=== PATIENT | male | born 1940 | race Caucasian/White ===

== ENCOUNTER 2018-07-07 20:09 | Emergency (ER) | payer MEDICARE, OTHER ==
[~2018-07-07 20:09] MED LIST: ACET500T68 PO; AMLO-98 PO; AMLO-99 PO; ASP325 PO; ASPI-1471 PO; ATOR10TA24 PO; BO60S PR; CALC-520 PO; CHLOR25 PO; CIP500 PO; CIPR500S3 PO; CLON0.3T35 PO; CLON1PAT TD; CLON1PAT20 TD; CLON1PAT23 TD; DOC100 PO; DOCU-416 PO; FAM20 PO; FAMO-122 PO; FAMO10TA86 PO; FAMO1TAB79 PO; FAMO20TA28 PO; FES4PT PO; FLU180SY9 IM; GLUC1KIT4 IJ; GLY25 PO; GLYB2.5T67 PO; HYDR-2966 PO; HYDR-385 PO; INSU100I30 SQ; INSU100V24 SQ; INSU200I SC; INSU200I SUBQ; LOR5/325 PO; LOSA-57 PO; LOSA25TA46 PO; LOSA50TA72 PO; LUTE10TA3 PO; LUTE20TA PO; LUTE6CAP11 PO; MET500 PO; METO-253 PO; METO-259 PO; METR1KIT2 TP; METXR500 PO; MULT1CAP41 PO; NEED-653 MC; NOVOLOG SUBQ; PHEN200T32 PO; PHENA200 PO; PSYL660P5 PO; ROS10 PO; SODI454P10 MC; SUL500 PO; TAM4 PO; levoquin PO
--- NOTE | 2018-07-07 20:15 | ER Report ---
History and Physical Time Seen By MD: 20:15 HPI/ROS CHIEF COMPLAINT: hematuria HISTORY OF PRESENT ILLNESS: This is an 78 year old male. He had an episode of gross hematuria tonight. He had been feeling alright in his normal state of health and then went to the bathroom. Noted red blood with urination. Some dysuria as well. Had a blood clot on his urinary pad. Mild lower abdominal discomfort. No other pain. He has a history of left nephrectomy due to renal cancer many years ago and has stage 4 chronic kidney disease and see nephrology, Dr. Guzman. He had a TURP about [address] Contreras. No fevers or chills but did have an elevated temperature this week. No other bleeding such as blood in stool, nose bleeds, or other bleeding or bruising. He does feel very weak and fatigued. No chest pain. No shortness of breath. Allergies: Coded Allergies: DYLAN Inhibitors (Verified Allergy, Unknown, 06/07/17) insulin detemir (Verified Allergy, Unknown, RASH, 07/07/15) potassium (Verified Allergy, Unknown, 06/07/17) Home Meds Active Scripts Amoxicillin/Pot Clav 875-125 Mg Tab (AUGMENTIN 875-125 TABLET) 1 Each Tablet, 1 TAB PO Q12H, #20 TAB 0 Refills Prov:ROHIT TURCISO MD 07/07/18 [place], Insulin Disposable (Bd Ultra-Fine Pen Needle) 1 Each Dis.needle, EA MC Q30D, #100 3 Refills USE TO ADMINISTER INSULIN DIRECTED BY YOUR DOCTOR. Prov:LINDSEY AL MD 05/11/18 Atorvastatin Calcium (LIPITOR) 10 Mg Tablet, 1 TAB PO QDAY, #90 TAB 3 Refills Prov:LINDSEY AL MD 04/20/18 Metoprolol Tartrate (METOPROLOL TARTRATE) 50 Mg Tab, 1 TAB PO BID, #180 TAB 3 Refills Prov:LINDSEY AL MD 04/20/18 Glucagon,Human Recombinant (GLUCAGON EMERGENCY KIT) 1 Mg Kit, 1 MG IJ DIRECTED, #1 KIT Prov:LINDSEY AL MD 04/12/18 Amlodipine Besylate (AMLODIPINE BESYLATE) 10 Mg Tablet, 1 TAB PO QDAY, #90 TAB 4 Refills Prov:LINDSEY AL MD 01/25/18 Insulin Glargine 100 Un/Ml Pen (LANTUS SOLOSTAR PEN) 100 Unit/1 Ml Insuln.pen, 60 UNIT SQ QDAY, #15 SYR 3 Refills Prov:LINDSEY AL MD 12/07/17 Insulin Lispro 200 UN/ML PEN (Humalog Kwikpen) 200 Unit/1 Ml Insuln.pen, 15-20 UNITS SC DIRECTED, #10 SYR 6 Refills 20 units in the morning, 15 units at 9 and 15 units with dinner Maximum dose 60 units in a 24-hour period Prov:LINDSEY AL MD 11/22/17 Reported Medications Clonidine Hcl (CLONIDINE HCL) 0.3 Mg Tablet, 0.3 MG PO BID, TAB 04/12/18 Lutein (LUTEIN) 20 Mg Tablet, 1 TAB PO QDAY 11/20/17 Losartan Potassium (LOSARTAN POTASSIUM) 50 Mg Tablet, 1 TAB PO QDAY 11/20/17 Hydrochlorothiazide (HYDROCHLOROTHIAZIDE) 25 Mg Tablet, 1 TAB PO QDAY, TAB 11/20/17 Acetaminophen (TYLENOL EXTRA STRENGTH) 500 Mg Tablet, 500 MG PO PRN, TAB 06/07/17 Calcium Carbonate (TUMS X-STR) 300 Mg Tab.chew, 300 MG PO DAILY, TAB.CHEW 06/07/17 Famotidine/Ca Carb/Mag Hydrox (PEPCID COMPLETE TABLET CHEW) 1 Each Tab.chew, 1 EACH PO QDAY, TAB.CHEW 06/07/17 Metronidazole/Skin Cleansr #23 (ROSADAN 0.75% GEL KIT) 1 Each Kit.cl.gel, 1 EACH TP 06/07/17 Psyllium Husk (Metamucil) Unknown Strength Powder, 1 TBS PO QHS 06/07/17 Aspirin (ASPIR 81) 81 Mg Tablet.dr, 81 MG PO QDAY, TAB 12/26/14 Reviewed Nurses Notes: Yes Hx Smoking: No Smoking Status: Former Smoker Constitutional Vital Sign - Last 24 Hours 07/07/18 07/07/18 07/07/18 07/07/18 20:09 20:17 20:25 20:39 Temp 98.5 Pulse ??? 72 70 Resp 17 B/P (MAP) 159/83 (108) 159/83 Pulse Ox 93 93 O2 Delivery Room Air 07/07/18 07/07/18 07/07/18 8/25/18 20:51 21:00 21:09 21:30 Pulse 69 B/P (MAP) 150/75 (100) 146/74 (98) 139/72 (94) Pulse Ox 93 07/07/18 07/07/18 07/07/18 07/07/18 22:00 22:00 22:35 23:00 Pulse 59 59 B/P (MAP) 145/82 (103) 145/82 (103) 155/78 (103) 142/75 (97) Pulse Ox 91 95 Physical Exam General Appearance: The patient is alert. No acute distress, but is anxious given his history and symptoms tonight. Eyes: Pupils are equal, round. No pallor, injection or icterus. ENT: Mucous membranes are moist. Respiratory: Breathing easily and unlabored. Lungs are clear to auscultation. Cardiovascular: Regular rate and rhythm. No murmurs, gallops or rubs. Normal capillary refill. Gastrointestinal: Abdomen is soft. No masses. Non-tender with palpation. Nondistended. Normal active bowel sounds. No costovertebral angle tenderness with percussion. Genitourinary: No tenderness with palpation of the groin, scrotum and penis. Normal appearing urethra meatus without current bleeding or discharge. Neurological: Alert and oriented x3. Skin: Warm and dry. No rashes. Musculoskeletal: No tenderness in palpation of the back and spine. DIFFERENTIAL DIAGNOSIS: After history and physical exam, differential diagnosis was considered for gross hematuria in a patient with a history of renal cancer s/p left nephrectomy, h/o TURP, on a daily aspirin. Would consider sources of bleeding to be mainly the bladder with urinary tract infection, but not excluding the right kidney. Will check kidney function, blood count, coagulation studies, and urinalysis with culture. CT scan without contrast to evaluate kidneys and bladder. Less likely to be a stone. Medical Decision Making Data Points Result Diagram: 07/07/18204807/07/182048 Laboratory Hematology Test 07/07/18 20:49 07/07/18 22:37 Red Blood Count 5.86 M/uL (4.00-5.60) Mean Corpuscular Volume 81.4 fL (80.0-96.0) Mean Corpuscular Hemoglobin 28.0 pg (26.0-33.0) Mean Corpuscular Hemoglobin Concent 34.4 g/dL (32.0-36.0) Red Cell Distribution Width 15.1 % (11.5-14.5) Mean Platelet Volume 8.4 fL (7.2-11.1) Neutrophils (%) (Auto) 68.4 % (39.4-72.5) Lymphocytes (%) (Auto) 17.6 % (17.6-49.6) Monocytes (%) (Auto) 11.7 % (4.1-12.4) Eosinophils (%) (Auto) 1.5 % (0.4-6.7) Basophils (%) (Auto) 0.8 % (0.3-1.4) Nucleated RBC Relative Count (auto) 0.1 /100WBC Neutrophils # (Auto) 5.6 K/uL (2.0-7.4) Lymphocytes # (Auto) 1.4 K/uL (1.3-3.6) Monocytes # (Auto) 1.0 K/uL (0.3-1.0) Eosinophils # (Auto) 0.1 K/uL (0.0-0.5) Basophils # (Auto) 0.1 K/uL (0.0-0.1) Nucleated RBC Absolute Count (auto) 0.01 K/uL Prothrombin Time 13.3 seconds (12.0-14.4) Prothromb Time International Ratio 1.01 Activated Partial Thromboplast Time 29 seconds (23-35) Sodium Level 133 mmol/L (137-145) Potassium Level 3.8 mmol/L (3.5-5.0) Chloride Level 91 mmol/L (98-107) Carbon Dioxide Level 31 mmol/L (22-30) Blood Urea Nitrogen 43 mg/dl (9-21) Creatinine 1.90 mg/dl (0.66-1.25) Glomerular Filtration Rate Calc 34.3 Random Glucose 232 mg/dl (75-110) Calcium Level 9.2 mg/dl (8.4-10.2) Total Bilirubin 0.3 mg/dl (0.2-1.3) Aspartate Amino Transf (AST/SGOT) 27 U/L (0-35) Alanine Aminotransferase (ALT/SGPT) 41 U/L (0-56) Alkaline Phosphatase 88 U/L (0-126) Total Protein 7.1 g/dl (6.3-8.2) Albumin 4.0 g/dl (3.5-5.0) Urine Color Yellow Urine Clarity Slightly-cloudy Urine pH 5.0 pH (4.8-9.5) Urine Specific [place] 1.009 Urine Protein 30 mg/dL (NEGATIVE) Urine Glucose (UA) Negative mg/dL (NEGATIVE) Urine Ketones Negative mg/dL (NEGATIVE) Urine Blood Large (NEGATIVE) Urine Nitrite Negative (NEGATIVE) Urine Bilirubin Negative (NEGATIVE) Urine Urobilinogen Negative mg/dL (0.2-1.9) Urine Leukocyte Esterase Moderate (NEGATIVE) Urine RBC 32 /HPF (0-2/HPF) Urine WBC 77 /HPF (0-5/HPF) Urine Squamous Epithelial Cells None /LPF (</=FEW) Urine Bacteria Many /HPF (NONE-FEW) Urine Mucus None /HPF (NONE-FEW) Chemistry Test 07/07/18 20:49 07/07/18 22:37 White Blood Count 8.2 k/uL (4.5-11.0) Red Blood Count 5.86 M/uL (4.00-5.60) Hemoglobin 16.4 g/dL (14.0-18.0) Hematocrit 47.7 % (42.0-52.0) Mean Corpuscular Volume 81.4 fL (80.0-96.0) Mean Corpuscular Hemoglobin 28.0 pg (26.0-33.0) Mean Corpuscular Hemoglobin Concent 34.4 g/dL (32.0-36.0) Red Cell Distribution Width 15.1 % (11.5-14.5) Platelet Count 279 K/uL (150-450) Mean Platelet Volume 8.4 fL (7.2-11.1) Neutrophils (%) (Auto) 68.4 % (39.4-72.5) Lymphocytes (%) (Auto) 17.6 % (17.6-49.6) Monocytes (%) (Auto) 11.7 % (4.1-12.4) Eosinophils (%) (Auto) 1.5 % (0.4-6.7) Basophils (%) (Auto) 0.8 % (0.3-1.4) Nucleated RBC Relative Count (auto) 0.1 /100WBC Neutrophils # (Auto) 5.6 K/uL (2.0-7.4) Lymphocytes # (Auto) 1.4 K/uL (1.3-3.6) Monocytes # (Auto) 1.0 K/uL (0.3-1.0) Eosinophils # (Auto) 0.1 K/uL (0.0-0.5) Basophils # (Auto) 0.1 K/uL (0.0-0.1) Nucleated RBC Absolute Count (auto) 0.01 K/uL Prothrombin Time 13.3 seconds (12.0-14.4) Prothromb Time International Ratio 1.01 Activated Partial Thromboplast Time 29 seconds (23-35) Glomerular Filtration Rate Calc 34.3 Calcium Level 9.2 mg/dl (8.4-10.2) Total Bilirubin 0.3 mg/dl (0.2-1.3) Aspartate Amino Transf (AST/SGOT) 27 U/L (0-35) Alanine Aminotransferase (ALT/SGPT) 41 U/L (0-56) Alkaline Phosphatase 88 U/L (0-126) Total Protein 7.1 g/dl (6.3-8.2) Albumin 4.0 g/dl (3.5-5.0) Urine Color Yellow Urine Clarity Slightly-cloudy Urine pH 5.0 pH (4.8-9.5) Urine Specific [place] 1.009 Urine Protein 30 mg/dL (NEGATIVE) Urine Glucose (UA) Negative mg/dL (NEGATIVE) Urine Ketones Negative mg/dL (NEGATIVE) Urine Blood Large (NEGATIVE) Urine Nitrite Negative (NEGATIVE) Urine Bilirubin Negative (NEGATIVE) Urine Urobilinogen Negative mg/dL (0.2-1.9) Urine Leukocyte Esterase Moderate (NEGATIVE) Urine RBC 32 /HPF (0-2/HPF) Urine WBC 77 /HPF (0-5/HPF) Urine Squamous Epithelial Cells None /LPF (</=FEW) Urine Bacteria Many /HPF (NONE-FEW) Urine Mucus None /HPF (NONE-FEW) Coagulation Test 07/07/18 20:49 Prothrombin Time 13.3 seconds Prothromb Time International Ratio 1.01 Activated Partial Thromboplast Time 29 seconds Urinalysis Test 07/07/18 22:37 Urine Color Yellow Urine Clarity Slightly-cloudy Urine pH 5.0 pH (4.8-9.5) Urine Specific [place] 1.009 Urine Protein 30 mg/dL (NEGATIVE) Urine Glucose (UA) Negative mg/dL (NEGATIVE) Urine Ketones Negative mg/dL (NEGATIVE) Urine Blood Large (NEGATIVE) Urine Nitrite Negative (NEGATIVE) Urine Bilirubin Negative (NEGATIVE) Urine Urobilinogen Negative mg/dL (0.2-1.9) Urine Leukocyte Esterase Moderate (NEGATIVE) Urine RBC 32 /HPF (0-2/HPF) Urine WBC 77 /HPF (0-5/HPF) Urine Squamous Epithelial Cells None /LPF (</=FEW) Urine Bacteria Many /HPF (NONE-FEW) Urine Mucus None /HPF (NONE-FEW) EKG/Imaging Imaging ABDOMEN/PELVIS W/O CONTRAST HISTORY: Gross hematuria. COMPARISON: 05/30/2014. and studies dating to 11/01/2006. TECHNIQUE: Axial images were obtained from the lung bases through the symphysis pubis without intravenous contrast. Sagittal and coronal reformats were performed. One of the following dose optimization techniques was utilized in the performance of this exam: Automated exposure control; adjustment of the mA and/or kV according to the patient's size; or use of an iterative reconstruction technique. Specific details can be referenced in the facility's radiology CT exam operational policy. CONTRAST: None. FINDINGS: Lower chest: There is minimal atelectasis. Liver: Normal. Gallbladder/biliary: Normal. Pancreas: Normal. Spleen: Normal. Adrenals: Normal. Kidneys/ureters/bladder: Left kidney is surgically absent. The right kidney is rotated on its axis. There is a 1.8 cm exophytic lesion arising from the anterior right kidney. It has increased in size, previously measuring 1.1 cm in 2014. It was indeterminate on previous noncontrast MR. There is a similar 1.4 cm exophytic lesion arising from the anterior right kidney on image 57, previously 1.1 cm. However, it was of high T2 signal on previous MR, suggesting it is a proteinaceous or complex cyst. There is a 2.4 cm lesion arising from the superior anterior right kidney on image 51 that has increased in size, previously 1.5 cm. It was of high T2 signal on the previous MR, suggesting it is a proteinaceous or complex cyst. There is an 8 mm hyperdense cyst arising from the posterior right renal cortex (coronal image 81). There are other exophytic cysts of the right kidney. No hydronephrosis and no obstructing or nonobstructing calculus. The right ureter and the bladder are normal. Residual left ureter is normal. GI/mesentery/peritoneal cavity: There is no bowel obstruction. There is no wall thickening or pericolonic stranding. The appendix is normal. There is sigmoid and descending colon diverticulosis without diverticulitis. Vessels: There is moderate atherosclerotic disease without aneurysm. Nodes: Normal. Pelvis: There are coarse prostate calcifications. Prostate is prominent, measuring 5 cm. There is a large fat-containing left inguinal hernia. There is a small fat-containing right inguinal hernia. There are pelvic phleboliths. Bones/vertebra/soft tissues: There are bridging anterior osteophytes from T9 through L1. There is mild multilevel degenerative change of the spine. There are vacuum clefts at L5-S1 and at L1-2. There is moderate to severe degenerative facet disease of the lumbar spine. There is 1 mm retrolisthesis of L3 compared to L4. There is a moderate to large fat-containing ventral hernia at the level of umbilicus (image 104 series 3). IMPRESSION: 1. Left kidney is surgically absent. Right kidney contains several cysts as well as some lesions that are not definitely cysts, but may be proteinaceous or complex cysts. Patient had an MR in May 2014 without contrast. Most of the lesions were of high T2 signal, compatible with cysts. However, there is one lesion arising from the anterolateral renal cortex on axial image 64 series 3 of today's examination that is not clearly a simple cyst. It has increased in size and now measures 1.8 cm. Nonemergent follow-up ultrasound is suggested to ensure that it is not a solid lesion. 2. Bladder and right ureter are normal. No hydronephrosis and no obstructing or nonobstructing calculus. 3. Prostate is prominent. 4. Diverticulosis without diverticulitis. 5. Bilateral, left larger than right, fat-containing inguinal hernias, and moderate to large fat-containing umbilical hernia. Report Dictate By: Emilee Douglas at 07/07/2018 10:14 PM ED Course/Re-evaluation Clinical Indication for ER IV: IV Access ED Course The patient had a urinalysis that showed hematuria, but also signs of urinary tract infection. Labs showed his chronic kidney disease and mild changes of electrolytes. Urine culture obtained. CT scan of the abdomen and pelvis without contrast was obtained with results as noted above. Follow-up with Dr. Contreras on Monday and discuss further ultrasound. Starting on Augmentin. Decision to Disposition Date: Jul 07, 2018 Decision to Disposition Time: 23:28 Depart Departure Latest Vital Signs Vital Signs Date Time Temp Pulse Resp B/P (MAP) Pulse Ox O2 Delivery O2 Flow Rate FiO2 07/07/18 23:00 59 142/75 (97) 95 07/07/18 20:25 98.5 17 Room Air Impression: Primary Impression: Urinary tract infection Additional Impression: Gross hematuria Condition: Improved Disposition: HOME OR SELF-CARE Referrals: JAMAAL OWUSU MD (PCP) New Scripts Amoxicillin/Pot Clav 875-125 Mg Tab (AUGMENTIN 875-125 TABLET) 1 Each Tablet 1 TAB PO Q12H, #20 TAB 0 Refills Prov: ROHIT TURCIOS MD 07/07/18 Patient Instructions: Hematuria (ED), Urinary Tract Infection in Men (ED) Additional Instructions: Follow-up with Dr. Contreras as planned. Discuss getting an ultrasound of the kidney for follow-up on the CT scan done tonight. Take the antibiotic Augmentin 875/125 twice a day for 10 days. Return for urine retention or for severe fevers/chills. Problem Qualifiers Primary Impression: Urinary tract infection Urinary tract infection type: acute cystitis Hematuria presence: with hematuria Qualified Codes: N30.01 - Acute cystitis with hematuria ROHIT TURCIOS MD Jul 07, 2018 20:15
[2018-07-07 21:08] LABS: PLATELET COUNT, AUTOMATED 279 K/uL (150-450)
[2018-07-07 21:13] LABS: INR 1.01
--- NOTE | 2018-07-07 22:46 | RADIOLOGY IMAGING REPORT ---
FACILITY: [facility] PATIENT NAME: Dejon Ibarra : 1940 MR: [id number] V: [id number] EXAM DATE: ORDERING PHYSICIAN: ROHIT TURCIOS TECHNOLOGIST: Location: [facility] - [place] Patient: Dejon Ibarra : 1940 Visit/Account:[id number] Date of Sevice: 07/07/2018 ABDOMEN/PELVIS W/O CONTRAST HISTORY: Gross hematuria. COMPARISON: 05/30/2014. and studies dating to 11/01/2006. TECHNIQUE: Axial images were obtained from the lung bases through the symphysis pubis without intrave nous contrast. Sagittal and coronal reformats were performed. One of the following dose optimization techniques was utilized in the performance of this exam: Autom ated exposure control; adjustment of the mA and/or kV according to the patient's size; or use of an i terative reconstruction technique. Specific details can be referenced in the facility's radiology CT exam operational policy. CONTRAST: None. FINDINGS: Lower chest: There is minimal atelectasis. Liver: Normal. Gallbladder/biliary: Normal. Pancreas: Normal. Spleen: Normal. Adrenals: Normal. Kidneys/ureters/bladder: Left kidney is surgically absent. The right kidney is rotated on its axis. T here is a 1.8 cm exophytic lesion arising from the anterior right kidney. It has increased in size, p reviously measuring 1.1 cm in 2013. It was indeterminate on previous noncontrast MR. There is a simil ar 1.4 cm exophytic lesion arising from the anterior right kidney on image 57, previously 1.1 cm. How ever, it was of high T2 signal on previous MR, suggesting it is a proteinaceous or complex cyst. Ther e is a 2.4 cm lesion arising from the superior anterior right kidney on image 51 that has increased i n size, previously 1.5 cm. It was of high T2 signal on the previous MR, suggesting it is a proteinace ous or complex cyst. There is an 8 mm hyperdense cyst arising from the posterior right renal cortex ( coronal image 81). There are other exophytic cysts of the right kidney. No hydronephrosis and no obst ructing or nonobstructing calculus. The right ureter and the bladder are normal. Residual left ureter is normal. GI/mesentery/peritoneal cavity: There is no bowel obstruction. There is no wall thickening or pericol onic stranding. The appendix is normal. There is sigmoid and descending colon diverticulosis without diverticulitis. Vessels: There is moderate atherosclerotic disease without aneurysm. Nodes: Normal. Pelvis: There are coarse prostate calcifications. Prostate is prominent, measuring 5 cm. There is a l arge fat-containing left inguinal hernia. There is a small fat-containing right inguinal hernia. Ther e are pelvic phleboliths. Bones/vertebra/soft tissues: There are bridging anterior osteophytes from T9 through L1. There is mil d multilevel degenerative change of the spine. There are vacuum clefts at L5-S1 and at L1-2. There is moderate to severe degenerative facet disease of the lumbar spine. There is 1 mm retrolisthesis of L 3 compared to L4. There is a moderate to large fat-containing ventral hernia at the level of umbilicu s (image 104 series 3). IMPRESSION: 1. Left kidney is surgically absent. Right kidney contains several cysts as well as some lesions that are not definitely cysts, but may be proteinaceous or complex cysts. Patient had an MR in May 2014 without contrast. Most of the lesions were of high T2 signal, compatible with cysts. However, there i s one lesion arising from the anterolateral renal cortex on axial image 64 series 3 of today's examin ation that is not clearly a simple cyst. It has increased in size and now measures 1.8 cm. Nonemergen t follow-up ultrasound is suggested to ensure that it is not a solid lesion. 2. Bladder and right ureter are normal. No hydronephrosis and no obstructing or nonobstructing calcul us. 3. Prostate is prominent. 4. Diverticulosis without diverticulitis. 5. Bilateral, left larger than right, fat-containing inguinal hernias, and moderate to large fat-cont aining umbilical hernia. Report Dictate By: Emilee Douglas at 07/07/2018 10:14 PM Report E-Signed By: Emilee Douglas at 07/07/2018 10:42 PM WSN:[id number]
[2018-07-07 23:00] VITALS: BP 142/75
[2018-07-07] MEDS ORDERED: AMOX/CLAV 875 MG TAB PO ONE (23:30)
[2018-07-07] MEDS ORDERED: AMOX-559 PO (23:30)
== END 2018-07-07 23:39 | disposition home or self-care (01) ==
LOC: ER 20:20
DX: N30.01 Acute cystitis with hematuria (principal); R31.0 Gross hematuria; N28.1 Cyst of kidney, acquired; K57.30 Diverticulosis of large intestine without perforation or abscess without bleeding
CPT/HCPCS: 74176; 81001; 85025; 85610; 85730; 87077; 87088; 87186; 99284; A9270; 82040; 82247; 82310; 82374; 82435; 82565; 82947; 84075; 84132; 84155; 84295; 84450; 84460; 84520

== ENCOUNTER 2018-09-20 02:00 | Outpatient (RCR) | payer MEDICARE, OTHER ==
[~2018-09-20 02:00] MED LIST changes: +AMLO-113 PO; -AMLO-99 PO; +AMOX-559 PO; -LOSA50TA72 PO; +LOSA50TA74 PO
[2018-09-20] MEDS ORDERED: NIFE60TA95 PO (13:20)
[2018-09-20] MEDS ORDERED: FLAS1EAC2 TD (13:39)
[2018-09-20] MEDS ORDERED: FLAS1KIT2 (13:39)
--- NOTE | 2018-09-25 16:54 | RADIOLOGY IMAGING REPORT ---
FACILITY: [facility] - [place] PATIENT NAME: Dejon Ibarra : 1940 MR: [id number] V: [id number] EXAM DATE: ORDERING PHYSICIAN: LINDSEY AL TECHNOLOGIST: Location: [facility] - [place] Patient: Dejon Ibarra : 1940 Visit/Account:[id number] Date of Sevice: 09/25/2018 KIDNEYS HISTORY: renal cyst right kidney and nephrectomy left side COMPARISON: CT 05/13/2014 FINDINGS: Kidneys: Right kidney- 12.4 x 7.0 x 6.2 cm with normal parenchymal thickness and echogenicity. There are mult iple small simple cysts present. The largest measures 2.2 cm and arises from the superior pole. Left kidney is surgically absent. No mass is identified within the renal fossa. Uniform blood flow in the right kidney by Doppler ultrasound. Hydronephrosis: None. Bladder: Morphologically unremarkable. Right ureteral jet is visualized. There is no significant po st void residual. Abdominal aorta and IVC: Patent by Doppler ultrasound. IMPRESSION: Multiple simple right renal cysts are present. No acute abnormalities noted. Stable left nephrectomy changes Report Dictated By: Armando Graf at 09/25/2018 4:43 PM Report E-Signed By: Armando Graf at 09/25/2018 4:51 PM WSN:[id number]
== END 2018-09-25 18:00 | disposition home or self-care (01) ==
LOC: US 02:00 → EDSTATUS 09-21 13:34 → US 09-25 18:00
PROVIDERS: ATTEND Internal Medicine
DX: N39.0 Urinary tract infection, site not specified (principal); N28.1 Cyst of kidney, acquired; N18.9 Chronic kidney disease, unspecified
CPT/HCPCS: 76705; 81001; 87077; 87088; 87186

== ENCOUNTER 2018-10-16 13:41 | Emergency (ER) | payer MEDICARE, OTHER ==
[~2018-10-16 13:41] MED LIST changes: +FLAS1EAC2 TD; +FLAS1KIT2; +NIFE60TA95 PO
--- NOTE | 2018-10-16 13:58 | ER Report ---
History and Physical Time Seen By MD: 13:59 Hx. of Stated Complaint: left ankle pain HPI/ROS CHIEF COMPLAINT: Left ankle pain HISTORY OF PRESENT ILLNESS: 78-year-old male patient presents to emergency room with complaint of left ankle pain. Patient states this started hurting on of last week. Patient states that pain is worse with any activity. Patient states that it's better if he is not doing anything. He states that it's much worse at nighttime. Patient denies any trauma to the ankle. Patient states that he is able to walk, just has pain with no reason. Patient denies having a history of gout, however he does have a history of pseudogout which was diagnosed by Dr. Valentino. Patient denies any fevers, chills, nausea, vomiting or diarrhea. REVIEW OF SYSTEMS: Respiratory: No cough, no dyspnea. Cardiovascular: No chest pain, no palpitations. Gastrointestinal: No vomiting, no abdominal pain. Musculoskeletal: As noted above Allergies: Coded Allergies: DYLAN Inhibitors (Verified Allergy, Unknown, 10/16/18) insulin detemir (Verified Allergy, Unknown, RASH, 10/16/18) potassium (Verified Allergy, Unknown, 10/16/18) Home Meds Active Scripts Prednisone (PREDNISONE) 20 Mg Tablet, 40 MG PO DAILY, #10 TAB Prov:ARACELIS VINCENT 10/16/18 Flash Glucose Sensor (Freestyle Alexander 14 Day Sensor) 1 Each Kit, UNIT Q2WK, #2 11 Refills Prov:LINDSEY AL MD 09/20/18 Flash Glucose Scanning Castell (Freestyle Alexander 14 Day Castell) 1 Each Each, UNIT TD DIRECTED, #1 Prov:LINDSEY AL MD 09/20/18 [place], Insulin Disposable (Bd Ultra-Fine Pen Needle) 1 Each Dis.needle, EA MC Q30D, #100 3 Refills USE TO ADMINISTER INSULIN DIRECTED BY YOUR DOCTOR. Prov:LINDSEY AL MD 05/11/18 Atorvastatin Calcium (LIPITOR) 10 Mg Tablet, 1 TAB PO QDAY, #90 TAB 3 Refills Prov:LINDSEY AL MD 04/20/18 Metoprolol Tartrate (METOPROLOL TARTRATE) 50 Mg Tab, 1 TAB PO BID, #180 TAB 3 Refills Prov:LINDSEY AL MD 04/20/18 Glucagon,Human Recombinant (GLUCAGON EMERGENCY KIT) 1 Mg Kit, 1 MG IJ DIRECTED, #1 KIT Prov:LINDSEY AL MD 04/12/18 Insulin Glargine 100 Un/Ml Pen (LANTUS SOLOSTAR PEN) 100 Unit/1 Ml Insuln.pen, 60 UNIT SQ QDAY, #15 SYR 3 Refills Prov:LINDSEY AL MD 12/07/17 Insulin Lispro 200 UN/ML PEN (Humalog Kwikpen) 200 Unit/1 Ml Insuln.pen, 15-20 UNITS SC DIRECTED, #10 SYR 6 Refills 20 units in the morning, 15 units at 9 and 15 units with dinner Maximum dose 60 units in a 24-hour period Prov:LINDSEY AL MD 11/22/17 Reported Medications Nifedipine (NIFEDIPINE ER) 60 Mg Tab.er.24, 60 MG PO QDAY 09/20/18 Clonidine Hcl (CLONIDINE HCL) 0.3 Mg Tablet, 0.3 MG PO BID, TAB 04/12/18 Lutein (LUTEIN) 20 Mg Tablet, 1 TAB PO QDAY 11/20/17 Losartan Potassium (LOSARTAN POTASSIUM) 50 Mg Tablet, 1 TAB PO QDAY 11/20/17 Hydrochlorothiazide (HYDROCHLOROTHIAZIDE) 25 Mg Tablet, 1 TAB PO QDAY, TAB 11/20/17 Acetaminophen (TYLENOL EXTRA STRENGTH) 500 Mg Tablet, 500 MG PO PRN, TAB 06/07/17 Calcium Carbonate (TUMS X-STR) 300 Mg Tab.chew, 300 MG PO DAILY, TAB.CHEW 06/07/17 Famotidine/Ca Carb/Mag Hydrox (PEPCID COMPLETE TABLET CHEW) 1 Each Tab.chew, 1 EACH PO QDAY, TAB.CHEW 06/07/17 Psyllium Husk (Metamucil) Unknown Strength Powder, 1 TBS PO QHS 06/07/17 Aspirin (ASPIR 81) 81 Mg Tablet.dr, 81 MG PO QDAY, TAB 12/26/14 Discontinued Reported Medications Metronidazole/Skin Cleansr #23 (ROSADAN 0.75% GEL KIT) 1 Each Kit.cl.gel, 1 EACH TP 06/07/17 Past Medical/Surgical History Patient has a past history of TIA, skipped beats, hyperlipidemia, reflux, frequent UTI, diabetes, pseudogout, kidney cancer, basal cell carcinoma removed from right ear, prostate cancer. Patient has a surgical history of tonsillectomy, TURP, left nephrectomy. Patient has a family medical history of diabetes, stroke, CAD, cancer. Reviewed Nurses Notes: Yes Hx Smoking: No Smoking Status: Former Smoker Constitutional Vital Sign - Last 24 Hours 10/16/18 10/16/18 10/16/18 10/16/18 13:53 13:53 14:11 14:41 Temp 97.9 Pulse 69 61 57 Resp 14 B/P (MAP) 141/66 141/66 (91) Pulse Ox 93 92 93 O2 Delivery Room Air 10/16/18 10/16/18 15:11 15:30 Pulse 53 B/P (MAP) 119/72 (88) 128/71 (90) Pulse Ox 92 Physical Exam General Appearance: The patient is alert, has no immediate need for airway protection and no current signs of toxicity. Respiratory: Chest is non tender, lungs are clear to auscultation. Cardiac: regular rate and rhythm Gastrointestinal: Abdomen is soft and non tender, no masses, bowel sounds normal. Musculoskeletal: Neck: Neck is supple and non tender. Extremities have full range of motion and are non tender. Patient does have tenderness to the left ankle, lateral malleolus does appear reddened, does not feel warm to the touch. Skin: No rashes or lesions. DIFFERENTIAL DIAGNOSIS: After history and physical exam differential diagnosis w as considered for fracture, contusion, pseudogout. Medical Decision Making EKG/Imaging Imaging Exam type: ANKLE 3 VIEW MIN LEFT History: Left ankle pain, no known injury Comparison: None. Findings: There is a well-corticated bony density projecting just distal to the medial malleolus. The distal portion the medial malleolus appears irregular suggesting an old injury to this location. The ankle mortise appears intact. No significant arthritic changes seen. There are very mild degenerative changes at the talotibial joint IMPRESSION: 1. Findings are suggestive of an old injury through the medial malleolus Very mild degenerative changes at the talotibial joint Report Dictated By: Zuleika Whitehead MD at 10/16/2018 3:05 PM Report E-Signed By: Zuleika Whitehead MD at 10/16/2018 3:07 PM ED Course/Re-evaluation ED Course Patient was admitted to exam room, history and physical were obtained. Differential diagnoses were considered. On examination lungs are clear, heart is regular, patient did have tenderness to the medial aspect of the left ankle. It was slightly reddened on the outside of the ankle. Patient denied having any trauma. States the pain is worse with activity. An x-ray was done of the left ankle which showed a an old fracture which is healed to the medial malleolus. There are some mild degenerative changes. I discussed findings with the patient. I believe that the old fracture the saws the ankle that he injured number of years ago. I did have concerns this is a flareup of pseudogout, which patient has had in the past. With patient having a history of all in one kidney and believe that we need to go ahead and treat with steroids. I discussed this with the patient and his they verbalized understanding and agreement. We will discharge him home at this time. They're to follow-up with her primary care provider in one week. Patient verbalized understanding and agreement with plan. Decision to Disposition Date: Oct 16, 2018 Decision to Disposition Time: 15:32 Depart Departure Latest Vital Signs Vital Signs Date Time Temp Pulse Resp B/P (MAP) Pulse Ox O2 Delivery O2 Flow Rate FiO2 10/16/18 15:30 128/71 (90) 10/16/18 15:11 53 92 10/16/18 13:53 97.9 14 Room Air Impression: Primary Impression: Ankle pain Additional Impression: Pseudogout of ankle Condition: Improved Disposition: HOME OR SELF-CARE Referrals: LINDSEY AL MD (PCP) New Scripts Prednisone (PREDNISONE) 20 Mg Tablet 40 MG PO DAILY, #10 TAB Prov: ARACELIS VINCENT 10/16/18 Patient Instructions: GENERAL ER DISCHARGE INSTRUCTIONS Additional Instructions: Limit activity by pain. Elevate the foot when you are not active. Follow up with your primary care provider in the next week. Return to the ER if condition worsens. Take the medication as prescribed. 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
--- NOTE | 2018-10-16 15:11 | RADIOLOGY IMAGING REPORT ---
FACILITY: [facility] - [place] PATIENT NAME: Dejon Ibarra : 1940 MR: [id number] V: [id number] EXAM DATE: ORDERING PHYSICIAN: ARACELIS VINCENT TECHNOLOGIST: Location: [facility] - [place] Patient: Dejon Ibarra : 1940 Visit/Account:[id number] Date of Sevice: 10/16/2018 Exam type: ANKLE 3 VIEW MIN LEFT History: Left ankle pain, no known injury Comparison: None. Findings: There is a well-corticated bony density projecting just distal to the medial malleolus. The distal p ortion the medial malleolus appears irregular suggesting an old injury to this location. The ankle m ortise appears intact. No significant arthritic changes seen. There are very mild degenerative mosqueda ges at the talotibial joint IMPRESSION: 1. Findings are suggestive of an old injury through the medial malleolus Very mild degenerative changes at the talotibial joint Report Dictated By: Zuleika Whitehead MD at 10/16/2018 3:05 PM Report E-Signed By: Zuleika Whitehead MD at 10/16/2018 3:07 PM WSN:[email or web address]
[2018-10-16 15:30] VITALS: BP 128/71
[2018-10-16] MEDS ORDERED: PRED20TA6 PO (15:30)
[2018-10-17] MEDS ORDERED: INSU100I35 SQ (17:03)
[2018-10-18] MEDS ORDERED: INSU200I SC (09:53)
== END 2018-10-16 15:40 | disposition home or self-care (01) ==
LOC: ER 13:50
DX: M11.272 Other chondrocalcinosis, left ankle and foot (principal); M25.572 Pain in left ankle and joints of left foot
CPT/HCPCS: 99283